=== PATIENT | female | born 1965 | race Caucasian/White ===

== ENCOUNTER 2022-03-03 20:03 | Observation (INO) | payer SELFPAY ==
[2022-03-03] MEDS ORDERED: Nitroglycerin 0.4 MG TAB (25 Tab Bottle) SL PRN (21:15)
[2022-03-03] MEDS ORDERED: Acetaminophen 325 MG TAB PO PRN (21:32)
[2022-03-03 22:17] LABS: Magnesium 2.3 mg/dL (1.6-2.6)
[2022-03-03 22:24] LABS: Troponin I 0.023 ng/mL (< 0.028)
[2022-03-03] MEDS: Nicotine 21 MG PATCH TD SCH (23:15)
[2022-03-03] MEDS: ALPRAZolam 0.5 MG TAB PO PRN (23:15)
[2022-03-03] MEDS: Potassium Chloride 20 MEQ TAB PO SCH (23:15)
[2022-03-04 00:47] VITALS: BMI 24.7
[2022-03-04 06:34] LABS: #Eosinphils 0.1 10x3/uL (0.0-0.5); #Monocytes 0.6 10x3/uL (0.0-1.1); #Neutrophils 2.1 10x3/uL (1.5-8.4); %Basophils 0.2 % (0.0-2.0); %Eosinophils 2.2 % (0.0-6.0); %Lymphocytes 36.3 % (18.0-47.0); %Neutrophils 46.9 % (40.0-75.0); Anion Gap 12 mmol/L (10-20); BUN (Urea Nitrogen) 17 mg/dL (9.8-20.1); Calc. Creatinine Clearance 86 mL/min (70-130); Calcium 8.9 mg/dL (7.8-10.44); Carbon Dioxide 26 mmol/L (22-29); Cardiac Risk 3.9 (Less than 4.5); Chloride 108 mmol/L (98-107); Cholesterol 205 mg/dl (< 200 Desired); Estimated GFR 91; Glucose 95 mg/dL (70-105); HDL Cholesterol 52 mg/dL (>60 Neg Risk); Hemoglobin 13.9 g/dL (12.0-15.5); LDL Cholesterol, Calculated 132 mg/dL; Mean Corpuscular HGB CONC 34.2 g/dL (32.0-36.0); Mean Corpuscular Hemoglobin 29.4 pg (27.0-33.0); Mean Corpuscular Volume 86.2 fl (81.6-98.3); Mean Platelet Volume 11.7 fl (7.4-10.4); Platelet Count 142 10x3/uL (150-450); RBC Distribution Width 14.2 % (11.5-14.5); Red Blood Cell (RBC) Count 4.72 10x6/uL (3.90-5.03); Sodium 142 mmol/L (136-145); Triglycerides 106 mg/dL (Less than 150); White Blood Cell (WBC) Count 4.5 10x3/uL (3.5-10.5)
[2022-03-04] MEDS: Potassium Chloride 20 MEQ TAB PO SCH (06:38)
[2022-03-04] MEDS ORDERED: Potassium Chloride 20 MEQ TAB PO SCH (06:45)
[2022-03-04] MEDS: Aspirin Chewable 81 MG TAB PO SCH (08:17)
[2022-03-04] MEDS: Enoxaparin Sodium 40 MG/0.4 ML SYRINGE SC SCH (08:17)
[2022-03-04] MEDS: ALPRAZolam 0.5 MG TAB PO PRN ×2 (11:18→22:26)
[2022-03-04] MEDS ORDERED: Benzonatate 100 MG CAP PO PRN (15:02)
[2022-03-04] MEDS ORDERED: Acetaminophen 650 MG Suppository PR PRN (15:02)
[2022-03-04] MEDS ORDERED: Ventolin HFA Inhaler 60 PUFF INHALER INH PRN (15:16)
[2022-03-04] MEDS: methylPREDNISolone Sod Succ 40 MG VIAL IVP SCH ×2 (17:31→22:25)
[2022-03-04] MEDS: Nicotine 21 MG PATCH TD SCH (17:56)
[2022-03-05] MEDS: Mometasone/Formoterol 200/5 60 PUFF INH SCH ×2 (01:17→07:05)
[2022-03-05] MEDS: methylPREDNISolone Sod Succ 40 MG VIAL IVP SCH (05:29)
[2022-03-05 06:12] LABS: Anion Gap 13 mmol/L (10-20); BUN (Urea Nitrogen) 16 mg/dL (9.8-20.1); Calc. Creatinine Clearance 102 mL/min (70-130); Calcium 8.8 mg/dL (7.8-10.44); Carbon Dioxide 22 mmol/L (22-29); Chloride 106 mmol/L (98-107); Estimated GFR 102; Glucose 145 mg/dL (70-105); Potassium 4.1 mmol/L (3.5-5.1); Sodium 137 mmol/L (136-145)
[2022-03-05 06:18] LABS: #Monocytes 0.1 10x3/uL (0.0-1.1); #Neutrophils 2.8 10x3/uL (1.5-8.4); %Lymphocytes 12.5 % (18.0-47.0); %Monocytes 3.1 % (0.0-10.0); %Neutrophils 84.1 % (40.0-75.0); Hemoglobin 14.2 g/dL (12.0-15.5); Mean Corpuscular Volume 85.3 fl (81.6-98.3); Mean Platelet Volume 12.4 fl (7.4-10.4); Platelet Count 153 10x3/uL (150-450); RBC Distribution Width 13.7 % (11.5-14.5); White Blood Cell (WBC) Count 3.3 10x3/uL (3.5-10.5)
[2022-03-05] MEDS ORDERED: Cholecalciferol (Vitamin D3) 400 UNITS TAB PO SCH (09:00)
[2022-03-05] MEDS ORDERED: Ascorbic Acid 500 mg Chewable Tablet PO SCH (09:00)
[2022-03-05] MEDS ORDERED: Zinc Sulfate 220 MG CAP PO SCH (09:00)
[2022-03-05] MEDS: Aspirin Chewable 81 MG TAB PO SCH (09:08)
[2022-03-05] MEDS: Enoxaparin Sodium 40 MG/0.4 ML SYRINGE SC SCH (09:08)
[2022-03-05 13:11] VITALS: BP 157/99; TEMP 99
== END 2022-03-05 13:09 | disposition home or self-care (01) ==
LOC: CSHTELE 20:03 → INTOOBSV 20:03
PROVIDERS: ADMIT Family Medicine; ATTEND Family Medicine
DX: U07.1 COVID-19 (principal); J12.82 Pneumonia due to coronavirus disease 2019; J43.9 Emphysema, unspecified; R07.9 Chest pain, unspecified; E87.6 Hypokalemia; R07.89 Other chest pain; F15.10 Other stimulant abuse, uncomplicated; F12.10 Cannabis abuse, uncomplicated; F17.210 Nicotine dependence, cigarettes, uncomplicated; Z88.5 Allergy status to narcotic agent; Z90.710 Acquired absence of both cervix and uterus
CPT/HCPCS: 36415; 71045; 80048; 80061; 82728; 83735; 84145; 85025; 85379; 86140; 87070; 87205; 94664; G0378; J1650; J2920

== ENCOUNTER 2022-03-06 17:44 | Emergency (ER) | payer SELFPAY ==
[2022-03-06] MEDS ORDERED: Lorazepam 1 MG TAB ONE (18:42)
[2022-03-06 19:07] LABS: #Monocytes 0.6 10x3/uL (0.0-1.1); #Neutrophils 6.9 10x3/uL (1.5-8.4); %Basophils 0.1 % (0.0-2.0); %Lymphocytes 14.9 % (18.0-47.0); %Monocytes 6.8 % (0.0-10.0); %Neutrophils 77.4 % (40.0-75.0); Hemoglobin 13.2 g/dL (12.0-15.5); Mean Corpuscular HGB CONC 35.6 g/dL (32.0-36.0); Mean Corpuscular Volume 84.3 fl (81.6-98.3); Mean Platelet Volume 11.6 fl (7.4-10.4); Platelet Count 196 10x3/uL (150-450); RBC Distribution Width 14.1 % (11.5-14.5); White Blood Cell (WBC) Count 8.9 10x3/uL (3.5-10.5)
[2022-03-06 19:20] LABS: ALT (SGPT) 23 U/L (8-55); AST (SGOT) 21 U/L (5-34); Albumin 4.4 g/dL (3.5-5.0); Alkaline Phosphatase 50 U/L (40-110); Anion Gap 14 mmol/L (10-20); BUN (Urea Nitrogen) 12 mg/dL (9.8-20.1); Bilirubin, Total 0.5 mg/dL (0.2-1.2); Calc. Creatinine Clearance 0 mL/min (70-130); Calcium 8.8 mg/dL (7.8-10.44); Carbon Dioxide 21 mmol/L (22-29); Chloride 108 mmol/L (98-107); Estimated GFR 102; Globulin 1.9 g/dL (2.4-3.5); Glucose 106 mg/dL (70-105); Potassium 3.8 mmol/L (3.5-5.1); Protein, Total 6.3 g/dL (6.0-8.3); Sodium 139 mmol/L (136-145)
[2022-03-06] MEDS ORDERED: hydrOXYzine 25 MG TAB ONE (19:51)
== END 2022-03-06 21:20 | disposition home or self-care (01) ==
LOC: CSHERS 17:44
DX: U07.1 COVID-19 (principal); F43.0 Acute stress reaction; I10 Essential (primary) hypertension; J44.9 Chronic obstructive pulmonary disease, unspecified; F17.210 Nicotine dependence, cigarettes, uncomplicated
CPT/HCPCS: 71045; 80053; 84484; 85025; 85379; 93005

== ENCOUNTER 2022-03-07 21:52 | Emergency (ER) | payer SELFPAY ==
[2022-03-07] MEDS ORDERED: Mag-Al Plus 1200 MG/1200 MG/120 MG/30 ML UDCUP ONE (23:17)
[2022-03-07] MEDS ORDERED: Lidocaine Viscous Sol 2% 15 ml UD Cup ONE (23:17)
[2022-03-07] MEDS ORDERED: Diazepam 5 MG TAB ONE (23:17)
[2022-03-07] MEDS ORDERED: Ketorolac Tromethamine 30 MG/ML VIAL ONE (23:18)
== END 2022-03-07 23:32 | disposition home or self-care (01) ==
LOC: CSHERS 21:52
DX: F41.9 Anxiety disorder, unspecified (principal); I10 Essential (primary) hypertension; J44.9 Chronic obstructive pulmonary disease, unspecified; F17.210 Nicotine dependence, cigarettes, uncomplicated; Z79.899 Other long term (current) drug therapy
CPT/HCPCS: 93005; 96372; J1885

== ENCOUNTER 2022-03-16 20:55 | Emergency (ER) | payer SELFPAY | END 2022-03-16 21:36 | disposition home or self-care (01) | LOC: CSHERS 20:55 | DX: F41.9 Anxiety disorder, unspecified (principal); J44.9 Chronic obstructive pulmonary disease, unspecified; I10 Essential (primary) hypertension; Z79.899 Other long term (current) drug therapy | CPT/HCPCS: 93005; 99281 ==

== ENCOUNTER 2022-03-25 12:49 | Emergency (ER) | payer OTHER, SELFPAY ==
[2022-03-25 13:51] LABS: #Eosinphils 0.1 10x3/uL (0.0-0.5); #Monocytes 0.6 10x3/uL (0.0-1.1); #Neutrophils 6.9 10x3/uL (1.5-8.4); %Basophils 0.4 % (0.0-2.0); %Eosinophils 0.7 % (0.0-6.0); %Lymphocytes 15.3 % (18.0-47.0); %Monocytes 6.3 % (0.0-10.0); %Neutrophils 77.1 % (40.0-75.0); Hemoglobin 13.6 g/dL (12.0-15.5); Mean Corpuscular HGB CONC 34.2 g/dL (32.0-36.0); Mean Corpuscular Hemoglobin 30.2 pg (27.0-33.0); Mean Corpuscular Volume 88.2 fl (81.6-98.3); Mean Platelet Volume 10.9 fl (7.4-10.4); Platelet Count 258 10x3/uL (150-450); RBC Distribution Width 14.2 % (11.5-14.5); Red Blood Cell (RBC) Count 4.51 10x6/uL (3.90-5.03)
[2022-03-25 14:06] LABS: ALT (SGPT) 22 U/L (8-55); AST (SGOT) 20 U/L (5-34); Albumin 4.5 g/dL (3.5-5.0); Alkaline Phosphatase 57 U/L (40-110); Anion Gap 15 mmol/L (10-20); BUN (Urea Nitrogen) 11 mg/dL (9.8-20.1); Bilirubin, Total 0.4 mg/dL (0.2-1.2); Calc. Creatinine Clearance 0 mL/min (70-130); Calcium 9.5 mg/dL (7.8-10.44); Carbon Dioxide 23 mmol/L (22-29); Chloride 106 mmol/L (98-107); Estimated GFR 94; Globulin 2.1 g/dL (2.4-3.5); Glucose 112 mg/dL (70-105); Lipase 34 U/L (8-78); Potassium 3.8 mmol/L (3.5-5.1); Protein, Total 6.6 g/dL (6.0-8.3); Sodium 140 mmol/L (136-145)
== END 2022-03-25 15:47 | disposition home or self-care (01) ==
LOC: CSHERS 12:49
DX: F41.9 Anxiety disorder, unspecified (principal); I10 Essential (primary) hypertension; J44.9 Chronic obstructive pulmonary disease, unspecified; F17.200 Nicotine dependence, unspecified, uncomplicated
CPT/HCPCS: 71045; 80053; 83690; 84484; 85025; 93005; 94760

== ENCOUNTER 2022-03-28 01:08 | Emergency (ER) | payer SELFPAY ==
[2022-03-28] MEDS ORDERED: Lorazepam 2 MG/ML VIAL ONE (03:04)
== END 2022-03-28 03:42 | disposition home or self-care (01) ==
LOC: CSHERS 01:08
DX: F43.0 Acute stress reaction (principal); I10 Essential (primary) hypertension; J44.9 Chronic obstructive pulmonary disease, unspecified; F17.210 Nicotine dependence, cigarettes, uncomplicated
CPT/HCPCS: 96372; 99283; J2060

== ENCOUNTER 2022-03-30 11:19 | Emergency (ER) | payer SELFPAY | END 2022-03-30 13:39 | disposition home or self-care (01) | LOC: CSHERS 11:19 | DX: F41.9 Anxiety disorder, unspecified (principal); J44.9 Chronic obstructive pulmonary disease, unspecified; I10 Essential (primary) hypertension; F17.210 Nicotine dependence, cigarettes, uncomplicated | CPT/HCPCS: 93005 ==